=== PATIENT | female | born 1950 | race Caucasian/White ===

== ENCOUNTER → 2016-09-13 | Outpatient (CLI) | payer OTHER, MEDICARE ==
[~2016-09-13] MED LIST: AMLODIPINE BESY10 MG PO; ANTACID325 MG PO; APAP500 PO; BENTYL 10 MG CA10 M1 PO; CALICUM 500+D1 EACH PO; CARAFATE 1 GM TA1 G1 PO; CLOBETASOL EMOL15 GM TP; CLONAZEPAM 0.50.5 M1 PO; CLONIDINE HCL0.3 M3 PO; DOXYCYCLINE 10100 MG PO; GABAPENTIN100 MG PO; HEMORRHOIDAL H1 EACH TP; LEVAQUIN 500 M500 MG PO; LEVEMIR100 UNIT/1 SQ; LOPRESSOR100 M1 PO; MULTIVITAMINS1 EAC7 PO; NOVOLOG100 UNIT/1 SUBQ; OMEPRAZOLE40 MG PO; ONDANSETRON HCL4 M2 PO; PROAIR HFA8.5 GM; TRAMADOL 50 MG50 MG PO; VENLAFAXIN75 MG/1 T2 PO; VISINE15 ML OP
[2016-09-13 10:19] LABS: CREATININE 0.9 mg/dL (0.6-1.0)
== END ==
LOC: CAT 09:22
PROVIDERS: Internal Medicine
DX: D13.6 Benign neoplasm of pancreas (principal); K44.9 Diaphragmatic hernia without obstruction or gangrene

== ENCOUNTER → 2017-09-21 | Outpatient (CLI) | payer OTHER, MEDICARE | LOC: RAD 09-18 13:57 → CAT 01:34 | DX: Z12.31 Encounter for screening mammogram for malignant neoplasm of breast (principal); N20.0 Calculus of kidney; K44.9 Diaphragmatic hernia without obstruction or gangrene; D13.6 Benign neoplasm of pancreas; M47.816 Spondylosis without myelopathy or radiculopathy, lumbar region; E11.9 Type 2 diabetes mellitus without complications; G47.33 Obstructive sleep apnea (adult) (pediatric); M81.0 Age-related osteoporosis without current pathological fracture; Z90.49 Acquired absence of other specified parts of digestive tract ==

== ENCOUNTER 2017-11-26 13:23 | Emergency (ER) | payer OTHER, MEDICARE ==
[~2017-11-26] VITALS: Ht 149.9 cm; Wt 117.0 kg
[2017-11-26] MEDS ORDERED: TRAMADOL 50 MG50 MG PO (14:42)
[2017-11-26] MEDS ORDERED: NAPROXEN375 MG PO (14:42)
[2017-11-26 14:54] VITALS: BP 139/80
== END 2017-11-26 14:55 | disposition home or self-care (01) ==
LOC: ER 13:23
DX: S63.694A Other sprain of right ring finger, initial encounter (principal); M19.041 Primary osteoarthritis, right hand; I10 Essential (primary) hypertension; E11.9 Type 2 diabetes mellitus without complications; E66.9 Obesity, unspecified; Z88.8 Allergy status to other drugs, medicaments and biological substances; Z88.1 Allergy status to other antibiotic agents; Z88.4 Allergy status to anesthetic agent; Z88.6 Allergy status to analgesic agent; Z88.5 Allergy status to narcotic agent; Z88.0 Allergy status to penicillin; Z88.2 Allergy status to sulfonamides; Z68.43 Body mass index [BMI] 50.0-59.9, adult; Z79.4 Long term (current) use of insulin; W18.39XA Other fall on same level, initial encounter; Y93.01 Activity, walking, marching and hiking; Y92.89 Other specified places as the place of occurrence of the external cause; Y99.8 Other external cause status

== ENCOUNTER → 2018-09-24 | Outpatient (CLI) | payer OTHER, MEDICARE ==
[~2018-09-24] MED LIST changes: +NAPROXEN375 MG PO
== END ==
LOC: RAD 05:44
DX: Z12.31 Encounter for screening mammogram for malignant neoplasm of breast (principal)

== ENCOUNTER → 2020-07-08 | Outpatient (CLI) | payer OTHER, MEDICARE | LOC: RAD 12:53 | PROVIDERS: ATTEND Internal Medicine | DX: Z12.31 Encounter for screening mammogram for malignant neoplasm of breast (principal) ==